=== PATIENT | female | born 1985 | race Caucasian/White ===

== ENCOUNTER 2016-12-24 22:14 | Inpatient (IN) | payer SELFPAY ==
[~2016-12-24] VITALS: Ht 170.2 cm; Wt 80.7 kg
--- NOTE | ~2016-12-24 | CON ---
[place], [place] REPORT OF CONSULTATION NAME: ALEX BOYER UNIT #: [id number] ROOM: [facility] DOCTOR: PRERNA JACOBO ED.D (ОЛЬГА) BIRTHDATE: [birth year] DOS: 12/25/2016 HISTORY OF PRESENT ILLNESS: The patient is a 31-year-old female referred by the hospitalist for evaluation following a suicide attempt. At the present time, this patient is in the Intensive Care Unit at [facility]. She states she is single, although she was formerly with her boyfriend. She has no children. 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 She states she is not certain of her physician's name, but she does have a family physician in [place]. This patient states that she drinks approximately 6 drinks of alcohol each week and does not smoke cigarettes. This patient was awake, alert and oriented in all 3 spheres. At the present time, she is still not certain she will not harm herself. She took an overdose of Naprosyn and Celexa and ended up in the hospital. She stated that she is not certain she will not go home and take more medicine in a suicide attempt and therefore she needs to be transferred to a psychiatric hospital. I discussed this with Dr. Brady and arrangements will be made through case management for transfer to a psychiatric facility. DIAGNOSIS: Major depressive disorder, recurrent. RECOMMENDATIONS: In my opinion, this patient should be transferred to a psychiatric facility due to the fact that she was hospitalized one time before for suicide attempt and is not certain she is not going to harm herself again. Thank you very much for this consult. PRERNA JACOBO ED.D CM:CONSTR:REPORT OF CONSULTATION 1206 12/25/16 2203 interface
[~2016-12-24 22:14] MED LIST: AMOXICILLIN500 MG PO; DAYPRO600 M1 PO; DIFLUCAN150 MG PO; IBU-8800 MG PO; MEDROL DOSEPAK4 MG PO; MOTRIN800 MG PO; NKHM; PHENERGAN W/DM120 ML PO; ROBAXIN750 MG PO; SUDAFED60 MG PO; TRAMADOL HCL50 MG PO; VIBRAMYCIN100 MG PO; VICODIN 500 MG-1 TAB PO
[2016-12-24 22:35] VITALS: BP 137/82
[2016-12-24 22:38] LABS: BASO # 0.1 10*3/uL (0.0-0.1); BASO % 0.6 % (0.0-1.0); EOS # 0.3 10*3/uL (0.0-0.4); EOS % 2.9 % (1.0-4.0); HEMATOCRIT 38.8 % (37.0-47.0); HEMOGLOBIN 12.5 g/dl (12.0-16.0); LYMPH # 3.1 10*3/uL (1.3-4.4); LYMPH % 33.3 % (27.0-41.0); MEAN CELL VOLUME 91.7 fl (81.0-99.0); MEAN CORPUSCULAR HGB 29.6 pg (27.0-31.0); MEAN CORPUSCULAR HGB CONC 32.2 g/dl (33.0-37.0); MEAN PLATELET VOLUME 9.8 fl (9.6-12.3); MONO # 0.7 10*3/uL (0.1-1.0); MONO % 7.9 % (3.0-9.0); NEUT # 5.1 10*3/uL (2.3-7.9); NEUT % 54.8 % (47.0-73.0); PLATELET COUNT AUTOMATED 349 10*3/uL (130-400); RED BLOOD COUNT 4.23 10*6/uL (4.10-5.10); RED CELL DISTRI WIDTH 13.8 % (0-14.5); WHITE BLOOD COUNT 9.4 10*3/uL (4.8-10.8)
--- NOTE | 2016-12-24 22:52 | NUR ---
PATIENT UNABLE TO URINATE AT THIS TIME. PATIENT INFORMED HER BELONGINGS ARE IN THE MED ROOM. PATIENT WILL INFORM NURSE WHEN SHE IS READY TO URINATE.
[2016-12-24 23:03] LABS: ALBUMIN 4.7 gm/dl (3.1-4.5); ALKALINE PHOSPHATASE 79 U/L (45-117); BUN 8 mg/dl (7-24); CHLORIDE 103 mmol/L (98-107); CREATININE 0.73 mg/dL (0.55-1.02); POTASSIUM 4.3 mmol/L (3.5-5.1); SGOT/AST 21 IU/L (3-35); SGPT/ALT 17 U/L (12-78); SODIUM 139 mmol/L (136-145); TOTAL PROTEIN 8.1 gm/dL (6.4-8.2)
[2016-12-24 23:04] LABS: ACETAMINOPHEN (TYLENOL) < 2.0 ug/ml (10-30); BETA-HCG, QUANT < 1.0 mIU/mL (1-3); ETHYL ALCOHOL < 3.0 mg/dl (<3); TROPONIN I < 0.015 ng/ml (<0.045)
[2016-12-24 23:42] VITALS: BP 121/80
[2016-12-25 00:10] VITALS: BP 141/85
--- NOTE | 2016-12-25 00:10 | NUR ---
A 31, admitted to ICCU, under the services of LASHAY Busby DO with a diagnosis of OVERDOSE/SUICIDE ATTEMPT. Chief complaint is DEPRESSION, TOOK UNKNOWN AMOUNT OF PILLS. Patient arrived via stretcher from ER. Monitor applied. Initial assessment completed. Vital signs taken and recorded. LASHAY BUSBY DO notified of admission to the unit. Orders received. See assessment for past medical history, medications and allergies. Patient and/or family oriented to unit. [facility] ICCU visitation policy reviewed. Clothing/patient valuable form completed. CORY MISHRA
[2016-12-25 04:00] VITALS: BP 118/78
[2016-12-25 04:28] LABS: BASO % 0.3 % (0.0-1.0); EOS # 0.2 10*3/uL (0.0-0.4); EOS % 1.9 % (1.0-4.0); HEMATOCRIT 36.8 % (37.0-47.0); LYMPH # 2.1 10*3/uL (1.3-4.4); LYMPH % 22.9 % (27.0-41.0); MEAN CELL VOLUME 90.6 fl (81.0-99.0); MEAN CORPUSCULAR HGB 29.6 pg (27.0-31.0); MEAN CORPUSCULAR HGB CONC 32.6 g/dl (33.0-37.0); MEAN PLATELET VOLUME 9.6 fl (9.6-12.3); MONO # 0.7 10*3/uL (0.1-1.0); MONO % 7.3 % (3.0-9.0); NEUT # 6.2 10*3/uL (2.3-7.9); NEUT % 67.3 % (47.0-73.0); PLATELET COUNT AUTOMATED 291 10*3/uL (130-400); RED BLOOD COUNT 4.06 10*6/uL (4.10-5.10); RED CELL DISTRI WIDTH 13.8 % (0-14.5); WHITE BLOOD COUNT 9.2 10*3/uL (4.8-10.8)
[2016-12-25 04:38] LABS: ACT PARTIAL THROMBO TIME 25.1 SECONDS (20.8-31.5)
[2016-12-25 04:45] LABS: BUN 7 mg/dl (7-24); CHLORIDE 104 mmol/L (98-107); CHOLESTEROL 173 mg/dL (<200); CREATININE 0.63 mg/dL (0.55-1.02); HDL CHOLESTEROL 42 mg/dl (40-60); LDL CHOLESTEROL 108 mg/dL (9-159); POTASSIUM 3.8 mmol/L (3.5-5.1); SODIUM 140 mmol/L (136-145); TRIGLYCERIDES 114 mg/dl (<150); VLDL CHOLESTEROL 23 mg/dL (6-40)
[2016-12-25 06:07] LABS: VITAMIN D, 25-HYDROXY 15.5 ng/mL (30-100)
--- NOTE | 2016-12-25 06:20 | NUR ---
MESSAGE LEFT FOR DR JACOBO ANSWERING SERVICE AND MESSAGE LEFT FOR MICHAELA ROWE ON HER VOICE MAIL.
[2016-12-25 08:00] VITALS: BP 139/92
--- NOTE | 2016-12-25 11:06 | NUR ---
KARSON FROM [employer] CALLED IN. QRS AND QTC INTERVALS GIVEN FROM EKG THAT WAS TAKEN AT 0200. VITALS STABLE. [facility] SIGNED OFF.
--- NOTE | 2016-12-25 11:58 | NUR ---
NOTIFIED MICHAELA ROWE OF ORDER FOR INPATIENT PSYCHIATRIC TREATMENT.
[2016-12-25 12:00] VITALS: BP 135/83
[2016-12-25 15:43] LABS: BILIRUBIN NEGATIVE (NEGATIVE); BLOOD NEGATIVE (NEGATIVE); CLARITY CLEAR (CLEAR); COLOR YELLOW (YELLOW); GLUCOSE NEGATIVE (NEGATIVE); KETONE TRACE (NEGATIVE); LEUKO ESTERASE 1+ (NEGATIVE); NITRITE NEGATIVE (NEGATIVE); UROBILINOGEN 0.2 E.U./dl (0.2-1.0)
[2016-12-25 15:52] LABS: URINE AMPHETAMINES < 1000 (1000ng/ml); URINE BARBITURATES < 200 (200ng/ml); URINE BENZODIAZEPINES < 200 (200ng/ml); URINE CANNABINOIDS (THC) < 50 (50ng/ml); URINE COCAINE < 300 (300ng/ml); URINE METHADONE < 300 (300ng/ml); URINE OPIATES < 300 (300ng/ml)
[2016-12-25 15:54] LABS: BACTERIA 1+
[2016-12-25 15:55] LABS: URINE PHENCYCLIDINE < 25 (25ng/ml)
[2016-12-25 16:00] VITALS: BP 120/80
--- NOTE | 2016-12-25 16:57 | NUR ---
spoke with [facility] as client is a self pay and she will have to go to [facility], they did come to screen her and made the referral. they will call me when they know anything about the bed status.
[2016-12-25 20:00] VITALS: BP 130/89
[2016-12-26] VITALS: BP 137/89
[2016-12-26 04:00] VITALS: BP 128/78
[2016-12-26 04:34] LABS: BASO % 0.3 % (0.0-1.0); EOS # 0.2 10*3/uL (0.0-0.4); EOS % 2.5 % (1.0-4.0); HEMATOCRIT 33.6 % (37.0-47.0); HEMOGLOBIN 10.8 g/dl (12.0-16.0); LYMPH # 2.6 10*3/uL (1.3-4.4); LYMPH % 30.4 % (27.0-41.0); MEAN CELL VOLUME 92.3 fl (81.0-99.0); MEAN CORPUSCULAR HGB 29.7 pg (27.0-31.0); MEAN CORPUSCULAR HGB CONC 32.1 g/dl (33.0-37.0); MEAN PLATELET VOLUME 9.5 fl (9.6-12.3); MONO # 0.6 10*3/uL (0.1-1.0); NEUT # 5.1 10*3/uL (2.3-7.9); NEUT % 59.2 % (47.0-73.0); PLATELET COUNT AUTOMATED 268 10*3/uL (130-400); RED BLOOD COUNT 3.64 10*6/uL (4.10-5.10); RED CELL DISTRI WIDTH 13.7 % (0-14.5); WHITE BLOOD COUNT 8.6 10*3/uL (4.8-10.8)
[2016-12-26 04:59] LABS: BUN 6 mg/dl (7-24); CHLORIDE 108 mmol/L (98-107); CREATININE 0.52 mg/dL (0.55-1.02); POTASSIUM 3.9 mmol/L (3.5-5.1); SODIUM 140 mmol/L (136-145)
[2016-12-26 08:00] VITALS: BP 129/85
--- NOTE | 2016-12-26 08:47 | NUR ---
Call placed to Latisha at [facility] [phone] ext [phone] by Nurse director Janine at request pf physicians. Message was left as she is unavailable at this time.
[2016-12-26] MEDS ORDERED: VITAMIN D31000 UNI1 PO (09:35)
--- NOTE | 2016-12-26 09:55 | NUR ---
[facility] she is going to [facility] today, the doctor filled out the pink slip which [facility] is agreeable to take her rather then going [facility] as we started the process prior to the 24 hour limit, the pink slip was given to control panel operator crude unit and faxed to [facility], i returned it to nursing so that it can go with client, i will call [facility] to transport once she is ready, g is behind today so they can be a delay of up too 2 hours. calling [facility] now and they will come as soon as they can.
--- NOTE | 2016-12-26 12:11 | NUR ---
CHE TO [facility] WITH JASKARAN
== END 2016-12-26 12:11 | disposition home health service (06) | DRG 918 ==
LOC: ED 22:14 → ICCU 23:13 → EDHOLD 23:13 → ICCU 23:45
PROVIDERS: Internal Medicine; Student in an Organized Health Care Education/Training Program; ADMIT Internal Medicine
DX: T50.901A Poisoning by unspecified drugs, medicaments and biological substances, accidental (unintentional), initial encounter (principal); F33.9 Major depressive disorder, recurrent, unspecified; E55.9 Vitamin D deficiency, unspecified; E66.3 Overweight; R73.9 Hyperglycemia, unspecified; A59.9 Trichomoniasis, unspecified; F41.9 Anxiety disorder, unspecified; Z87.891 Personal history of nicotine dependence; Z79.899 Other long term (current) drug therapy